=== PATIENT | male | born 1940 | race Caucasian/White ===

== ENCOUNTER → 2016-08-27 | Outpatient (REF) | payer MEDICARE ==
[2016-08-28 14:04] LABS: THYROID PEROXIDASE ANTIBODY 32.1 U/ML (<60.0)
== END ==
LOC: M LAB REF 13:01
PROVIDERS: ATTEND Internal Medicine
DX: E05.90 Thyrotoxicosis, unspecified without thyrotoxic crisis or storm (principal)

== ENCOUNTER → 2020-02-10 | Outpatient (REF) | payer MEDICARE ==
[2020-02-10 16:58] LABS: INR 1.12; PROTHROMBIN TIME 14.7 SECONDS (12.5-14.3)
== END ==
LOC: M LAB REF 16:20
PROVIDERS: ATTEND Internal Medicine
DX: Z01.818 Encounter for other preprocedural examination (principal); C61 Malignant neoplasm of prostate

== ENCOUNTER → 2020-06-15 | Outpatient (REF) | payer MEDICARE ==
[2020-06-15 14:58] LABS: C REACTIVE PROTEIN QUANTITATIV < 0.30 MG/DL (0.00-0.30); URIC ACID 5.3 MG/DL (3.5-7.2)
== END ==
LOC: M LAB REF 12:15
PROVIDERS: ATTEND Internal Medicine
DX: M25.50 Pain in unspecified joint (principal)

== ENCOUNTER → 2020-07-10 | Outpatient (REF) | payer MEDICARE ==
[2020-07-10 19:15] LABS: RHEUMATOID FACTOR QUANT < 10.0 IU/ML (<15.0); URIC ACID 5.1 MG/DL (3.5-7.2)
[2020-07-13 00:07] LABS: ANTINUCLEAR ANTIBODIES DIRECT Negative (Negative); CYCLIC CITRULLINATED PEPTIDE 2 units (0-19)
== END ==
LOC: M LAB REF 16:30
PROVIDERS: ATTEND Internal Medicine
DX: M25.542 Pain in joints of left hand (principal)

== ENCOUNTER → 2020-07-24 | Outpatient (CLI) | payer MEDICARE ==
--- NOTE | 2020-07-26 09:09 | REP ---
INDICATION: DIAGNOSING SOLITARY PULMONARY NODULE R91.1. There is also history of prostate carcinoma. COMPARISON: Comparison chest CT study [facility] diagnostic imaging dated May 10, 2020 showed a nodular opacity in the posterior sulcus of the right lower lobe.. TECHNIQUE: Approximately 45 minutes following the intravenous injection of a 16.80 mCi dose of F-18 FDG, three-dimensional PET scintigraphy is acquired from the skull base to the proximal thighs. Triplanar noncontrast CT scanning is acquired through the same anatomic range for attenuation correction, and image registration with scan parameters optimized to minimize radiation exposure to the patient. PET scintigraphy and CT datasets were fused and displayed on a workstation with multiplanar and projection display capability. FINDINGS: Head and neck soft tissues are unremarkable. There is some periarticular uptake associated with the left shoulder consistent with arthropathy There is no abnormal hypermetabolic uptake in the thorax. The nodular opacity previously identified in the right lower lobe is again seen although it appears less prominent. This may be due to technical differences in scan parameters on CT study. There is no abnormal hypermetabolic uptake seen within it. Maximum standard uptake value is 1.24. There are granulomatous calcifications in the left lower lobe, left hilus, and scattered within the spleen. In the abdomen and pelvis, there is normal distribution of FDG in the liver, spleen, gastrointestinal, and genitourinary tract. No abnormal hypermetabolic uptake is seen in the abdomen or pelvis. There are left renal cysts. There are colonic anastomotic sutures in the pelvis and surgical clips are seen anterior to the sacrum. No abnormal pelvic hypermetabolic uptake is seen. No abnormal skeletal uptake is seen. IMPRESSION: Negative PET scintigraphy. The nodular opacity previously noted in the right lower lobe posterior pleural angle is not hypermetabolic. CT follow-up recommended, 4-6 months. <Electronically signed by Ramón Carrera > 07/26/20 0905
== END ==
LOC: M PLARAD 11:05
PROVIDERS: ATTEND Internal Medicine Pulmonary Disease
DX: R91.1 Solitary pulmonary nodule (principal); N28.1 Cyst of kidney, acquired
CPT/HCPCS: 78815; A9552

== ENCOUNTER → 2021-06-12 | Outpatient (CLI) | payer MEDICARE | LOC: M PLAIMG 10:51 | PROVIDERS: ATTEND Internal Medicine Pulmonary Disease | DX: R91.1 Solitary pulmonary nodule (principal); J43.9 Emphysema, unspecified; J47.9 Bronchiectasis, uncomplicated; N28.1 Cyst of kidney, acquired ==

== ENCOUNTER → 2021-09-06 | Outpatient (REF) | payer MEDICARE | LOC: M LAB REF 16:18 | PROVIDERS: ATTEND Internal Medicine | DX: M25.571 Pain in right ankle and joints of right foot (principal) ==

== ENCOUNTER → 2023-06-05 | Outpatient (REF) | payer MEDICARE | LOC: M LAB REF 14:34 | PROVIDERS: ATTEND Internal Medicine | DX: M10.9 Gout, unspecified (principal) ==

== ENCOUNTER → 2023-09-30 | Outpatient (REF) | payer MEDICARE | LOC: M LAB REF 17:28 | PROVIDERS: ATTEND Internal Medicine | DX: M10.9 Gout, unspecified (principal) ==

== ENCOUNTER → 2024-01-13 | Outpatient (REF) | payer MEDICARE | LOC: M LAB REF 17:50 | PROVIDERS: ATTEND Internal Medicine | DX: M10.9 Gout, unspecified (principal) ==

== ENCOUNTER → 2024-07-27 | Outpatient (REF) | payer MEDICARE ==
[2024-07-27 18:13] LABS: URIC ACID 7.9 MG/DL (3.7-9.2)
[2024-07-28 12:17] LABS: PERCENT SATURATION 17.2 % (19.7-50.0)
[2024-07-28 12:22] LABS: FOLATE 4.1 NG/ML (>5.4)
== END ==
LOC: M LAB REF 17:47
PROVIDERS: ATTEND Internal Medicine
DX: M10.9 Gout, unspecified (principal)

== ENCOUNTER → 2025-01-25 | Outpatient (REF) | payer MEDICARE ==
[2025-01-26 12:49] LABS: IRON (FE) 73 UG/DL (65-175); PERCENT SATURATION 28.6 % (19.7-50.0)
[2025-01-26 12:54] LABS: VITAMIN B12 LEVEL 428 PG/ML (211-911)
== END ==
LOC: M LAB REF 12:09
PROVIDERS: ATTEND Internal Medicine
DX: D51.9 Vitamin B12 deficiency anemia, unspecified (principal); D50.9 Iron deficiency anemia, unspecified